=== PATIENT | male | born 1980 | race Hispanic/Latino ===

== ENCOUNTER 2021-07-08 12:31 | Emergency (ER) | payer SELFPAY ==
[2021-07-08 13:21] LABS: Absolute Lymphocytes (CBC) 1.4 K/uL (0.7-4.9); Hematocrit 43.4 % (39.6-49.0); Lymphocytes % 31.9 % (15.3-44.8); MPV 9.3 fL (7.6-11.3); RBC Red Blood Cell Count 4.64 M/uL (4.33-5.43)
[2021-07-08 13:22] LABS: Protime INR 1.09
[2021-07-08 13:38] LABS: Albumin 3.8 g/dL (3.4-5.0); Bilirubin Direct 0.1 mg/dL (0-0.2); Bilirubin Total 0.5 mg/dL (0.2-1.0); Magnesium 2.2 mg/dL (1.8-2.4); Potassium 4.1 mmol/L (3.5-5.1); Protein, Total 8.1 g/dL (6.4-8.2); Troponin High Sensitivity 22.1 pg/mL (<58.9)
--- NOTE | 2021-07-08 14:13 | RAD REPORT ---
EXAM DESCRIPTION: CT - Chest Angio - 07/08/2021 1:54 pm CLINICAL HISTORY: Chest pain COMPARISON: None. TECHNIQUE: Dynamically enhanced axial 3 mm thick images of the chest were obtained during administra tion of <100> mL Isovue 370 IV contrast. Coronal and oblique reconstruction images were generated and reviewed. Exam utilizes a protocol for optimal evaluation of pulmonary arterial tree. Maximum intensity projections 3D imaging was utilized All CT scans are performed using dose optimization technique as appropriate and may include automated exposure control or mA/KV adjustment according to patient size. FINDINGS: A pulmonary embolus is not seen. A thoracic aortic aneurysm is not noted. A pleural effusion is not seen. A pericardial effusion is not seen. Mild ground-glass opacities right lung. Curvilinear opacity right hemithorax probably an accessory fi ssure IMPRESSION: Negative for a pulmonary embolism. Mild ground-glass opacities right lung may indicate pneumonitis or viral pneumonia
--- NOTE | 2021-07-08 14:27 | RAD REPORT ---
EXAM DESCRIPTION: Andrey Single View07/08/2021 1:46 pm CLINICAL HISTORY: Chest pain COMPARISON: none FINDINGS: The lungs appear clear of acute infiltrate. The heart is normal size IMPRESSION: No acute abnormalities displayed
--- NOTE | 2021-07-08 14:34 | EDPHYS ---
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 13:11 Onset:. [facility] 17:20 Patient suffered a cardiac arrest last week. He was flown to the Medical Center in [facility]. After about 20 to 30 minutes of CPR, the patient was revived and a stent was placed. Subsequently was discharged on Sunday. Yesterday he started to have discomfort under his left inferior scapula. The pain radiated into his chest. He presents today complaining of possible chest pain. Patient otherwise is stable and without any apparent acute or life-threatening injury.. Onset: The symptoms/episode began/occurred gradually, yesterday. Severity of symptoms: At their worst the symptoms were mild in the emergency department the symptoms have improved mildly. The patient has not experienced similar symptoms in the past. The patient has been recently seen by a physician: Cardiac arrest last week at [facility]. Historical: - Allergies: 12:55 No Known Allergies; ap3 - Home Meds: 12:55 aspirin 81 mg Oral tab [Active]; atorvastatin 90 oral [Active]; Brilinta 90 mg oral tab ap3 [Active]; amoxicillin-pot clavulanate 875-125 mg Oral tab [Active]; carvedilol 6.25 mg oral tab [Active]; lisinopril 10 mg Oral tab [Active]; - PMHx: 12:55 Myocardial infarction; ap3 - PSHx: 12:55 Appendectomy; ap3 - Immunization history:: Client reports having NOT received the Covid vaccine. Flu vaccine is up to date. - Social history:: Smoking status: Patient denies any tobacco usage or history of. ROS: 17:20 Constitutional: Negative for fever, chills, and weight loss, Eyes: Negative for injury, kdr pain, redness, and discharge, ENT: Negative for injury, pain, and discharge, Neck: Negative for injury, pain, and swelling, Respiratory: Negative for shortness of breath, cough, wheezing, and pleuritic chest pain, Abdomen/GI: Negative for abdominal pain, nausea, vomiting, diarrhea, and constipation, Back: Negative for injury and pain, : Negative for injury, bleeding, discharge, and swelling, MS/Extremity: Negative for injury and deformity, Skin: Negative for injury, rash, and discoloration, Neuro: Negative for headache, weakness, numbness, tingling, and seizure activity. 17:20 Cardiovascular: Positive for chest pain, The pain in his chest radiates from his left scapula. Exam: 14:15 ECG was reviewed by the Attending Physician. kdr 17:20 Constitutional: This is a well developed, well nourished patient who is awake, alert, kdr and in no acute distress. Head/Face: Normocephalic, atraumatic. Eyes: Pupils equal round and reactive to light, extra-ocular motions intact. Lids and lashes normal. Conjunctiva and sclera are non-icteric and not injected. Cornea within normal limits. Periorbital areas with no swelling, redness, or edema. Neck: Trachea midline, no thyromegaly or masses palpated, and no cervical lymphadenopathy. Supple, full range of motion without nuchal rigidity, or vertebral point tenderness. No Meningismus. Chest/axilla: Normal chest wall appearance and motion. Nontender with no deformity. No lesions are appreciated. Cardiovascular: Regular rate and rhythm with a normal S1 and S2. No gallops, murmurs, or rubs. Normal PMI, no JVD. No pulse deficits. Respiratory: Lungs have equal breath sounds bilaterally, clear to auscultation and percussion. No rales, rhonchi or wheezes noted. No increased work of breathing, no retractions or nasal flaring. Abdomen/GI: Soft, non-tender, with normal bowel sounds. No distension or tympany. No guarding or rebound. No evidence of tenderness throughout. Back: No spinal tenderness. No costovertebral tenderness. Full range of motion. Skin: Warm, dry with normal turgor. Normal color with no rashes, no lesions, and no evidence of cellulitis. MS/ Extremity: Pulses equal, no cyanosis. Neurovascular intact. Full, normal range of motion. Neuro: Awake and alert, GCS 15, oriented to person, place, time, and situation. Cranial nerves II-XII grossly intact. Motor strength 5/5 in all extremities. Sensory grossly intact. Cerebellar exam normal. Normal gait. Psych: Awake, alert, with orientation to person, place and time. Behavior, mood, and affect are within normal limits. Vital Signs: 12:52 BP 141 / 90; Pulse 61; Resp 13; Temp 99.0; Pulse Ox 100% ; Weight 99.79 kg; Height 5 ap3 ft. 10 in. (177.80 cm); 14:52 BP 120 / 77; Pulse 56; Resp 23; Pulse Ox 100% on R/A; ww 12:52 Body Mass Index 31.57 (99.79 kg, 177.80 cm) ap3 MDM: 14:33 Patient medically screened. kdr 17:20 Data reviewed: vital signs, nurses notes, lab test result(s), EKG, radiologic studies. kdr Counseling: I had a detailed discussion with the patient and/or guardian regarding: the historical points, exam findings, and any diagnostic results supporting the discharge/admit diagnosis, lab results, radiology results, the need for outpatient follow up. 07/08 12:56 Order name: Basic Metabolic Panel; Complete Time: 14:25 kdr 07/08 12:56 Order name: CBC with Diff; Complete Time: 14:25 kdr 07/08 12:56 Order name: LFT's; Complete Time: 14:25 kdr 07/08 12:56 Order name: Magnesium; Complete Time: 14:25 kdr 07/08 12:56 Order name: NT PRO-BNP; Complete Time: 14:25 [facility] 07/08 12:56 Order name: PT-INR; Complete Time: 14:25 kdr 07/08 12:56 Order name: Troponin HS; Complete Time: 14:25 kdr 07/08 12:56 Order name: XRAY Chest (1 view) [facility] 07/08 12:56 Order name: EKG; Complete Time: 12:57 kdr 07/08 12:56 Order name: Cardiac monitoring; Complete Time: 12:58 kdr 07/08 12:56 Order name: EKG - Nurse/Tech; Complete Time: 12:59 [facility] 07/08 12:56 Order name: IV Saline Lock; Complete Time: 13:06 [facility] 07/08 12:56 Order name: Labs collected and sent; Complete Time: 13:06 [facility] 07/08 12:56 Order name: CT Chest Angio; Complete Time: 14:25 kdr 07/08 12:56 Order name: O2 Per Protocol; Complete Time: 12:59 kdr 07/08 12:56 Order name: O2 Sat Monitoring; Complete Time: 12:59 kdr EC:15 Rate is 58 beats/min. Rhythm is regular, Sinus bradycardia with No ectopy. QRS [place] is kdr Normal. SC interval is normal. QRS interval is normal. QT interval is normal. Clinical impression: NSR w/ Non-specific ST/T Changes and Sinus bradycardia. Administered Medications: No medications were administered Disposition Summary: 07/08/21 14:33 Discharge Ordered Location: Home kdr Problem: new kdr Symptoms: have improved kdr Condition: Stable kdr Diagnosis - Chest pain, unspecified kdr - Scapular pain - left kdr Followup: kdr - With: Private Physician - When: 2 - 3 days - Reason: If symptoms return, Further diagnostic work-up, Recheck today's complaints, Continuance of care, Re-evaluation by your physician Discharge Instructions: - Discharge Summary Sheet kdr - Nonspecific Chest Pain, Adult, [id number] kdr - Pneumonitis kdr Forms: - Medication Reconciliation Form kdr - Thank You Letter kdr - Antibiotic Education kdr - Prescription Opioid Use kdr Prescriptions: - Augmentin 875-125 mg Oral Tablet - take 1 tablet by ORAL route every 12 hours for 4 days; 8 tablet; Refills: 0, kdr Product Selection Permitted Signatures: Dispatcher [employer] Sin Wise MD MD kdr Prokisch, Amanda, RN RN ap3
--- NOTE | 2021-07-08 14:34 | ER ---
Nurse's Notes [facility] Name: Miguel Redmond Age: 41 yrs Sex: Male : 1980 Arrival Date: 07/08/2021 Time: 12:35 Bed 19 Private MD: Diagnosis: Chest pain, unspecified;Scapular pain - left Presentation: 07/08 12:52 Chief complaint: Patient states: he started having chest pain which began in his back ap3 and radiates to the front left side of his chest last night. It did not resolve by the time he woke up this morning. 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 His states CPR was done for 7 minutes with defibrillation X's 3. Patient was then transported by life flight to [facility] where he had a stent placed. Coronavirus screen: At this time, the client does not indicate any symptoms associated with coronavirus-19. Ebola Screen: No symptoms or risks identified at this time. Initial Sepsis Screen: Does the patient meet any 2 criteria? No. Patient's initial sepsis screen is negative. Does the patient have a suspected source of infection? No. Patient's initial sepsis screen is negative. Risk Assessment: Do you want to hurt yourself or someone else? Patient reports no desire to harm self or others. Onset of symptoms was July 07, 2021. 12:52 Method Of Arrival: Ambulatory ap3 12:52 Acuity: MELONY 2 ap3 Triage Assessment: 12:57 General: Appears in no apparent distress. comfortable, Behavior is calm, cooperative, ap3 appropriate for age. Pain: Complains of pain in left scapular area and left subscapular area Pain radiates to anterior aspect of left upper chest and left breast Pain began gradually, 1 day ago. Neuro: Level of Consciousness is awake, alert, obeys commands, Oriented to person, place, time, situation, Gait is steady, Speech is normal. Cardiovascular: Patient's skin is warm and dry. Respiratory: Airway is patent Respiratory effort is even, unlabored, Respiratory pattern is regular, symmetrical. Historical: - Allergies: 12:55 No Known Allergies; ap3 - Home Meds: 12:55 aspirin 81 mg Oral tab [Active]; atorvastatin 90 oral [Active]; Brilinta 90 mg oral tab ap3 [Active]; amoxicillin-pot clavulanate 875-125 mg Oral tab [Active]; carvedilol 6.25 mg oral tab [Active]; lisinopril 10 mg Oral tab [Active]; - PMHx: 12:55 Myocardial infarction; ap3 - PSHx: 12:55 Appendectomy; ap3 - Immunization history:: Client reports having NOT received the Covid vaccine. Flu vaccine is up to date. - Social history:: Smoking status: Patient denies any tobacco usage or history of. Screenin:58 Abuse screen: Denies threats or abuse. Nutritional screening: No deficits noted. ap3 Tuberculosis screening: No symptoms or risk factors identified. Fall Risk None identified. No fall in past 12 months (0 pts). Assessment: 13:04 General: Appears in no apparent distress. Behavior is calm, cooperative. Pain: ww Complains of pain in chest. Neuro: Level of Consciousness is awake, alert, obeys commands, Oriented to person, place, time, situation, Moves all extremities. Gait is steady, Speech is normal. Cardiovascular: Reports chest pain, Cardiac arrest last week at work and flown to [facility] had 70% blockage in LAD with EF of 50%. Capillary refill < 3 seconds Patient's skin is warm and dry. Rhythm is regular. Respiratory: Airway is patent Respiratory effort is even, unlabored, Respiratory pattern is regular, symmetrical. GI: No signs and/or symptoms were reported involving the gastrointestinal system. Abdomen is non-distended. : No signs and/or symptoms were reported regarding the genitourinary system. EENT: No signs and/or symptoms were reported regarding the EENT system. Derm: Skin is intact, is healthy with good turgor, Skin is pink, warm \T\ dry. 14:52 Reassessment: Patient appears in no apparent distress at this time. No changes from ww previously documented assessment. Patient and/or family updated on plan of care and expected duration. Pain level reassessed. Patient is alert, oriented x 3, equal unlabored respirations, skin warm/dry/pink. Vital Signs: 12:52 BP 141 / 90; Pulse 61; Resp 13; Temp 99.0; Pulse Ox 100% ; Weight 99.79 kg; Height 5 ap3 ft. 10 in. (177.80 cm); 14:52 BP 120 / 77; Pulse 56; Resp 23; Pulse Ox 100% on R/A; ww 12:52 Body Mass Index 31.57 (99.79 kg, 177.80 cm) ap3 ED Course: 12:35 Patient arrived in ED. kz 12:42 Sin Hendricks MD is Attending Physician. kdr 12:55 Triage completed. ap3 12:58 Patient has correct armband on for positive identification. Placed in gown. Bed in low ap3 position. Call light in reach. Side rails up X 1. Adult w/ patient. bus monitor on. Pulse ox on. NIBP on. Door closed. Noise minimized. 12:58 Arm band placed on right wrist. ap3 12:58 EKG done, by ED staff, reviewed by Sin Hendricks MD. ap3 13:04 Svitlana Kellogg, RN is Primary Nurse. ww 13:04 Inserted saline lock: 20 gauge in right antecubital area, using aseptic technique. ww Blood collected. 13:45 XRAY Chest (1 view) In Process Unspecified. EDMS 13:54 CT Chest Angio In Process Unspecified. EDMS 14:52 No provider procedures requiring assistance completed. IV discontinued, intact, ww bleeding controlled, No redness/swelling at site. Pressure dressing applied. Administered Medications: No medications were administered Outcome: 14:33 Discharge ordered by . kdr 14:52 Discharged to home ambulatory, with family. ww 14:52 Condition: stable 14:52 Discharge instructions given to patient, significant other, Instructed on discharge instructions, follow up and referral plans. no drinking with medication, medication usage, safety practices, Demonstrated understanding of instructions, follow-up care, medications, Prescriptions given X 1. 14:53 Patient left the ED. ww Signatures: Dispatcher [employer] EDVT Sin Hendricks MD MD [facility] Concha Johnson RN RN [facility] Svitlana Kellogg, RN RN Samantha Leroy
[2021-07-08 15:02] VITALS: TEMP 99; O2SAT 100
[2021-07-08 15:03] VITALS: BP 120/77
--- NOTE | 2021-07-10 10:13 | EKG ---
Test Date: 2021-07-08 Test Time: 12:43:02 Physician Gynecologist: ALP MEASUREMENT RESULTS: Intervals: Rate: 58 MT: 168 QRSD: 86 QT: 418 QTc: 410 [place]: P: 59 MT: 168 QRS: 74 T: 54 INTERPRETIVE STATEMENTS: Sinus bradycardia Otherwise normal ECG No previous ECG available for comparison Electronically Signed On 07-10-21 10:11:53 CDT by Joaquin Horne
== END 2021-07-08 14:53 | disposition home or self-care (01) ==
LOC: ER 12:31
DX: R07.9 Chest pain, unspecified (principal); M54.9 Dorsalgia, unspecified; I25.2 Old myocardial infarction; Z79.82 Long term (current) use of aspirin; Z95.818 Presence of other cardiac implants and grafts
CPT/HCPCS: 36415; 71045; 71275; 80048; 80076; 83735; 83880; 84484; 85025; 85610; 93005; 99284; Q9967